=== PATIENT | male | born 1985 | race Caucasian/White ===

== ENCOUNTER 2017-04-09 22:01 | Emergency (ER) | payer OTHER ==
[~2017-04-09] VITALS: Ht 170.2 cm; Wt 83.9 kg
[2017-04-10] MEDS ORDERED: GILTUSS TR TAB1 EACH PO (02:04)
[2017-04-10] MEDS ORDERED: OSEL75CA PO (02:04)
== END 2017-04-10 02:24 | disposition home or self-care (01) ==
LOC: ER 22:01
DX: J11.1 Influenza due to unidentified influenza virus with other respiratory manifestations (principal)